=== PATIENT | female | born 1980 | race Hispanic/Latino ===

== ENCOUNTER 2017-11-12 09:12 | Outpatient (CLI) | payer OTHER | END 2017-11-12 09:13 | disposition home or self-care (01) | LOC: MADLAB 09:12 | PROVIDERS: ATTEND Family Medicine | DX: O09.522 Supervision of elderly multigravida, second trimester (principal); Z13.228 Encounter for screening for other metabolic disorders | CPT/HCPCS: 36415 ==

== ENCOUNTER 2017-11-17 10:46 | Emergency (ER) | payer OTHER ==
[2017-11-17 11:07] LABS: Bilirubin Negative (Negative); Blood, Urine Trace (Negative); Clarity Hazy (Clear); Glucose, Urine (Dipstick) Negative (Negative); Leukocyte Small (Negative); Nitrite Negative (Negative); Pregnancy Test - Urine (BHCG) POSITIVE (Negative); Pregu Control Background? CLEAR/WHITE (CLR/WHITE); Pregu Control Bar Appear? YES (CONTROL BAR); Protein, Urine (Dipstick) Negative (Neg-Trace); Specific Gravity 1.012 (1.002-1.036); Specific Gravity, Urine 1.012 (1.002-1.036); Urobilinogen 0.2 mg/dL (0.2-1.0)
[2017-11-17] MEDS ORDERED: Acetaminophen 500 MG TAB ONE (11:10)
[2017-11-17 11:12] LABS: Bacteria/HPF 2+ HPF (None Seen); RBC/HPF 0-3 HPF (0-3)
== END 2017-11-17 11:30 | disposition home or self-care (01) ==
LOC: MADERS 10:46
DX: O09.519 Supervision of elderly primigravida, unspecified trimester (principal); O99.89 Other specified diseases and conditions complicating pregnancy, childbirth and the puerperium; M54.5 Low back pain; Z3A.00 Weeks of gestation of pregnancy not specified
CPT/HCPCS: 81003; 81015; 81025; 87086